=== PATIENT | female | born 1985 | race Caucasian/White ===

== ENCOUNTER 2017-04-08 05:13 | Emergency (ER) | payer OTHER ==
[~2017-04-08] VITALS: Ht 160 cm; Wt 69.5 kg
[~2017-04-08 05:13] MED LIST: ADVIL,NUPRIN,M200 MG PO; AUGMENTIN875 MG PO; BENTYL10 MG PO; CIPRO500 MG PO; COLACE100 MG PO; DOCUSATE SODIU100 MG PO; ENDOCET 5-3251 EACH PO; EXTRA STRENGTH500 M1 PO; FLAGYL500 MG PO; IBUPROFEN200 M1 PO; IBUPROFEN600 MG PO; LORTAB 5-325 M1 EACH PO; MOTRIN600 MG PO; Motrin PO; NAPROSYN500 MG PO; NORCO 5/3251 TABLET PO; OCELLA TABLET1 EACH PO; OXYCODONE HCL5 MG PO; PAXIL30 MG PO; PERCOCET 5/31 TABLET PO; Percocet 5/325,Endoc PO; TIROSINT13 MCG PO; TYLENOL EXTRA500 MG PO; ULTRAM50 MG PO; VANCOCIN HCL125 MG PO; YAZ 28 TABLET1 EACH PO; ZOFRAN ODT4 MG PO; ZOFRAN4 MG PO; [UNRECOGNIZED DRUG - REMARK] PO
[2017-04-08 05:51] LABS: MCH 29.7 PG (29.0-34.0); MCHC 33.3 G/DL (30.0-36.0); MEAN PLAT.VOLUME 9.4 uM^3 (9.5-12.4); PLATELET COUNT 281 K/uL (156-360); RBC DIS.WIDTH-SD 49.1 % (39-53); RED BLOOD COUNT 4.72 M/uL (3.80-5.20); WHITE BLOOD COUNT 10.6 K/uL (4.1-10.2)
[2017-04-08 06:00] LABS: PROTHROMBIN TIME 9.9 (9.2-11.2); PTT 32.1 (25-32)
[2017-04-08 06:05] LABS: CHLORIDE 108 mEq/L (99-109); SODIUM 140 mEq/L (136-147)
[2017-04-08 06:07] LABS: GLUCOSE 96 mg/dL (70-99)
[2017-04-08 06:08] LABS: ANION GAP 13 MEQ/L (2-14)
[2017-04-08 06:09] LABS: TOTAL BILIRUBIN 0.3 mg/dL (0.0-1.0)
[2017-04-08 06:10] LABS: ALKALINE PHOSPHATASE 73 IU/L (3-129)
[2017-04-08 06:11] LABS: GFR ESTIMATE (CALCULATED) > 59 mL/min/
[2017-04-08 06:12] LABS: UREA NITROGEN (BUN) 14 mg/dL (9-23)
[2017-04-08 06:14] LABS: LIPASE 27 U/L (1.0-51.0)
[2017-04-08 06:21] LABS: QUANTITATIVE HCG < 4.0 MIU/ML
[2017-04-08 07:32] LABS: ADD MIUA? YES; BILIRUBIN NEGATIVE; BLOOD MODERATE; COLOR YELLOW ((YELLOW)); GLUCOSE (STRIP) NEGATIVE; KETONES NEGATIVE; LEUKOCYTES NEGATIVE; NITRITE NEGATIVE; PROTEIN (STRIP) NEGATIVE; SPECIFIC GRAVITY 1.025 (1.000-1.030); UROBILINOGEN 0.2 MG/DL (0.2-1.0)
[2017-04-08 08:04] LABS: BACTERIA RARE /HPF; CALCIUM OXALATE CRYSTALS 3+ /HPF; EPITHELIAL CELLS RARE /HPF; MUCUS TRACE /LPF; RED BLOOD CELLS 0-5 /HPF (0-5); UCUL ADDED? NO; WHITE BLOOD CELLS 0-5 /HPF (0-5)
[2017-04-08] MEDS ORDERED: TRAMADOL HCL50 MG PO (09:52)
[2017-04-08 10:24] VITALS: BP 126/92
== END 2017-04-08 10:25 | disposition home or self-care (01) ==
LOC: EME 05:13
PROVIDERS: Emergency Medicine
DX: N92.0 Excessive and frequent menstruation with regular cycle (principal); N94.6 Dysmenorrhea, unspecified; F17.200 Nicotine dependence, unspecified, uncomplicated
CPT/HCPCS: 76856; 80053; 81003; 83690; 84702; 85027; 85610; 85730; 86900; 86901; 93005; 99281; 99285; J2270; J2405

== ENCOUNTER 2017-07-18 22:00 | Emergency (ER) | payer OTHER ==
[~2017-07-18] VITALS: Ht 160 cm; Wt 70.6 kg
[~2017-07-18 22:00] MED LIST changes: +TRAMADOL HCL50 MG PO
[2017-07-18 22:55] LABS: HEMATOCRIT 44.3 % (36.0-46.0); MCH 31.3 PG (29.0-34.0); MCHC 33.4 G/DL (30.0-36.0); MCV 93.7 FL (83-99); MEAN PLAT.VOLUME 9.3 uM^3 (9.5-12.4); PLATELET COUNT 265 K/uL (156-360); RBC DIS.WIDTH-CV 14.1 % (11.8-14.6); RBC DIS.WIDTH-SD 48.9 % (39-53); RED BLOOD COUNT 4.73 M/uL (3.80-5.20); WHITE BLOOD COUNT 11.2 K/uL (4.1-10.2)
[2017-07-18 23:09] LABS: CHLORIDE 111 mEq/L (99-109); POTASSIUM 3.1 mEq/L (3.7-5.4); SODIUM 144 mEq/L (136-147)
[2017-07-18 23:11] LABS: GLUCOSE 104 mg/dL (70-99)
[2017-07-18 23:12] LABS: ANION GAP 13 MEQ/L (2-14)
[2017-07-18 23:14] LABS: SERUM ETHYL ALCOHOL 225 mg/dL
[2017-07-18 23:15] LABS: GFR ESTIMATE (CALCULATED) > 59 mL/min/; UREA NITROGEN (BUN) 7 mg/dL (9-23)
[2017-07-18 23:24] LABS: QUANTITATIVE HCG 4020.9 MIU/ML
[2017-07-19 01:44] LABS: ADD MIUA? NO; BILIRUBIN NEGATIVE; BLOOD NEGATIVE; COLOR YELLOW ((YELLOW)); GLUCOSE (STRIP) NEGATIVE; KETONES NEGATIVE; LEUKOCYTES NEGATIVE; NITRITE NEGATIVE; PROTEIN (STRIP) NEGATIVE; SPECIFIC GRAVITY 1.026 (1.000-1.030); UCUL ADDED? NO
[2017-07-19 01:50] LABS: AMPHETAMINE NEGATIVE (500 ng/mL); BENZODIAZEPINES PRESUMPTIVE POSITIVE (150 ng/mL); COCAINE NEGATIVE (150 ng/mL); METHAMPHETAMINE NEGATIVE (500 ng/mL); OPIATES (MORPHINE) NEGATIVE (100 ng/mL); PHENCYCLIDINE NEGATIVE (25 ng/mL); THC CANNABINOIDS NEGATIVE (50 ng/mL)
[2017-07-19 01:51] LABS: ADD MEDTOX COMMENT Y; BARBITURATES NEGATIVE (200 ng/mL); INTERNAL CONTROLS VALID? YES; METHADONE NEGATIVE (200 ng/mL); OXYCODONE PRESUMPTIVE POSITIVE (100 ng/mL); PROPOXYPHENE NEGATIVE (300 ng/mL); TRICYCLIC ANTIDEPRESSANTS NEGATIVE (300 ng/mL)
[2017-07-19 02:30] VITALS: BP 128/73
[2017-07-19 04:53] LABS: BENZODIAZEPINES, URINE SCREEN POSITIVE (200 ng/mL)
== END 2017-07-19 03:04 | disposition home or self-care (01) ==
LOC: EME → EDBD 22:00 → EME 22:00
PROVIDERS: Emergency Medicine
DX: O99.341 Other mental disorders complicating pregnancy, first trimester (principal); F41.1 Generalized anxiety disorder; O99.311 Alcohol use complicating pregnancy, first trimester; F10.129 Alcohol abuse with intoxication, unspecified; O99.331 Smoking (tobacco) complicating pregnancy, first trimester; F17.200 Nicotine dependence, unspecified, uncomplicated; O99.281 Endocrine, nutritional and metabolic diseases complicating pregnancy, first trimester; E03.9 Hypothyroidism, unspecified; E87.6 Hypokalemia; Z3A.01 Less than 8 weeks gestation of pregnancy
CPT/HCPCS: 76801; 80048; 81003; 84702; 84999; 85027; 99281; 99285; G0480

== ENCOUNTER 2017-11-16 13:20 | Emergency (ER) | payer OTHER ==
[~2017-11-16] VITALS: Ht 160 cm; Wt 66.9 kg
[2017-11-16 14:26] LABS: HEMATOCRIT 37.2 % (36.0-46.0); HEMOGLOBIN 12.6 G/DL (11.9-15.5); MCH 32.3 PG (29.0-34.0); MCHC 33.9 G/DL (30.0-36.0); MCV 95.4 FL (83-99); PLATELET COUNT 238 K/uL (156-360); RBC DIS.WIDTH-CV 13.4 % (11.8-14.6); RBC DIS.WIDTH-SD 46.8 % (39-53); WHITE BLOOD COUNT 10.7 K/uL (4.1-10.2)
[2017-11-16 14:38] LABS: CHLORIDE 105 mEq/L (99-109); POTASSIUM 3.9 mEq/L (3.7-5.4); SODIUM 138 mEq/L (136-147)
[2017-11-16 14:40] LABS: GLUCOSE 86 mg/dL (70-99)
[2017-11-16 14:44] LABS: CREATININE 0.7 mg/dL (0.6-1.3); GFR ESTIMATE (CALCULATED) > 59 mL/min/
[2017-11-16 14:45] LABS: UREA NITROGEN (BUN) 10 mg/dL (9-23)
[2017-11-16 14:50] LABS: TROP-I INTERPRETATION NEGATIVE; TROPONIN-I < 0.01 ng/mL (0.0-0.30)
[2017-11-16 18:34] VITALS: BP 98/68
== END 2017-11-16 18:36 | disposition home or self-care (01) ==
LOC: EME 13:20
DX: O26.892 Other specified pregnancy related conditions, second trimester (principal); R07.9 Chest pain, unspecified; Z3A.23 23 weeks gestation of pregnancy; O99.282 Endocrine, nutritional and metabolic diseases complicating pregnancy, second trimester; E03.9 Hypothyroidism, unspecified; Z87.891 Personal history of nicotine dependence; Z88.1 Allergy status to other antibiotic agents
CPT/HCPCS: 71275; 80048; 84484; 85027; 93005; 99281; 99284; J7030

== ENCOUNTER 2018-01-31 15:24 | Outpatient (CLI) | payer OTHER ==
[~2018-01-31] VITALS: Ht 160 cm; Wt 70.0 kg
[2018-01-31 15:38] VITALS: BP 120/70
[2018-01-31] MEDS ORDERED: LEXAPRO20 MG PO (16:02)
[2018-01-31] MEDS ORDERED: PRENATAL TABLE1 EAC3 PO (16:03)
[2018-01-31 16:58] VITALS: BP 113/68
== END 2018-01-31 18:50 | disposition home or self-care (01) ==
LOC: LDRP-OP 15:24 → 2WEST 15:26 → LDRP-OP 04-08 09:43
DX: O36.5130 Maternal care for known or suspected placental insufficiency, third trimester, not applicable or unspecified (principal); Z3A.34 34 weeks gestation of pregnancy
CPT/HCPCS: 59025; G0378

== ENCOUNTER 2018-02-10 15:04 | Inpatient (IN) | payer OTHER ==
[2018-02-10] VITALS (7 sets, daily range): BP systolic 101–119; BP diastolic 58–74
[~2018-02-10] VITALS: Ht 160 cm; Wt 70.3 kg
[~2018-02-10 15:04] MED LIST changes: +LEXAPRO20 MG PO; +PRENATAL TABLE1 EAC3 PO
[2018-02-10] MEDS ORDERED: ZANTAC150 MG PO (16:34)
[2018-02-10 18:22] LABS: BASOPHIL (%) 0.4 % (0-1); EOSINOPHIL (%) 0.4 % (0-5); HEMATOCRIT 33.7 % (36.0-46.0); HEMOGLOBIN 11.6 G/DL (11.9-15.5); IMMATURE GRANULOCYTE (%) 0.2 % (0.0-0.7); LYMPHOCYTE (%) 18.2 % (15-42); LYMPHOCYTE COUNT 1.8 K/uL (1.0-2.8); MCH 32.9 PG (29.0-34.0); MCHC 34.4 G/DL (30.0-36.0); MCV 95.5 FL (83-99); MONOCYTE COUNT 0.9 K/uL (0-0.8); NEUTROPHIL (%) 71.8 % (45-76); NEUTROPHIL COUNT 7.1 K/uL (1.8-6.4); NRBC (%) 0.2 /100 WBC (0-0); PLATELET COUNT 198 K/uL (156-360); RBC DIS.WIDTH-CV 13.2 % (11.8-14.6); RED BLOOD COUNT 3.53 M/uL (3.80-5.20); WHITE BLOOD COUNT 9.9 K/uL (4.1-10.2)
[2018-02-10 18:47] LABS: APPEARANCE SL.HAZY ((CLEAR)); BILIRUBIN NEGATIVE; BLOOD NEGATIVE; COLOR YELLOW ((YELLOW)); GLUCOSE (STRIP) NEGATIVE; KETONES NEGATIVE; LEUKOCYTES TRACE; NITRITE NEGATIVE; PROTEIN (STRIP) NEGATIVE; SPECIFIC GRAVITY 1.014 (1.000-1.030); UROBILINOGEN 0.2 MG/DL (0.2-1.0)
[2018-02-10 18:57] LABS: BACTERIA RARE /HPF; EPITHELIAL CELLS RARE /HPF; MUCUS TRACE /LPF; RED BLOOD CELLS 0-5 /HPF (0-5); UCUL ADDED? NO; WHITE BLOOD CELLS 0-5 /HPF (0-5)
[2018-02-11] VITALS (23 sets, daily range): BP systolic 91–120; BP diastolic 55–76
[2018-02-11] MEDS ORDERED: IBUPROFEN800 MG PO (15:50)
[2018-02-11] MEDS ORDERED: ENDOCET 5-3251 EACH PO (15:50)
[2018-02-11 21:41] LABS: BENZODIAZEPINES, URINE SCREEN Negative (200 ng/mL)
[2018-02-12] LABS: AMPHETAMINE NEGATIVE (500 ng/mL); BARBITURATES NEGATIVE (200 ng/mL); BENZODIAZEPINES NEGATIVE (150 ng/mL); BUPRENORPHINE NEGATIVE (10 ng/mL); COCAINE NEGATIVE (150 ng/mL); METHADONE NEGATIVE (200 ng/mL); METHAMPHETAMINE NEGATIVE (500 ng/mL); OPIATES (MORPHINE) PRESUMPTIVE POSITIVE (100 ng/mL); OXYCODONE NEGATIVE (100 ng/mL); PHENCYCLIDINE NEGATIVE (25 ng/mL); PROPOXYPHENE NEGATIVE (300 ng/mL); THC CANNABINOIDS NEGATIVE (50 ng/mL); TRICYCLIC ANTIDEPRESSANTS NEGATIVE (300 ng/mL)
[2018-02-12 01:42] VITALS: BP 102/57
[2018-02-12 07:38] LABS: BASOPHIL (%) 0.2 % (0-1); EOSINOPHIL (%) 0.1 % (0-5); HEMATOCRIT 32.2 % (36.0-46.0); HEMOGLOBIN 10.9 G/DL (11.9-15.5); IMMATURE GRANULOCYTE (%) 0.6 % (0.0-0.7); LYMPHOCYTE (%) 10.3 % (15-42); LYMPHOCYTE COUNT 1.8 K/uL (1.0-2.8); MCH 31.9 PG (29.0-34.0); MCHC 33.9 G/DL (30.0-36.0); MCV 94.2 FL (83-99); MONOCYTE (%) 8.4 % (3-12); MONOCYTE COUNT 1.5 K/uL (0-0.8); NEUTROPHIL (%) 80.4 % (45-76); NEUTROPHIL COUNT 14.1 K/uL (1.8-6.4); PLATELET COUNT 215 K/uL (156-360); RBC DIS.WIDTH-CV 13.1 % (11.8-14.6); RBC DIS.WIDTH-SD 44.9 % (39-53); RED BLOOD COUNT 3.42 M/uL (3.80-5.20); WHITE BLOOD COUNT 17.5 K/uL (4.1-10.2)
[2018-02-12 07:47] VITALS: BP 102/60
[2018-02-12 14:00] VITALS: BP 130/78
[2018-02-12 19:45] VITALS: BP 111/65
[2018-02-12 23:16] VITALS: BP 115/74
[2018-02-13 03:00] VITALS: BP 131/75
[2018-02-13 22:52] VITALS: BP 113/66
[2018-02-14 07:27] VITALS: BP 125/76
[2018-02-15 00:29] VITALS: BP 124/77
[2018-02-15 09:30] VITALS: BP 122/76
== END 2018-02-15 16:00 | disposition home or self-care (01) | DRG 765 ==
LOC: LDRP-OP 15:04 → 2WEST 15:08 → LDRP-OP 04-08 21:33
PROVIDERS: Advanced Practice Midwife; Obstetrics & Gynecology; Obstetrics & Gynecology Gynecology
DX: O69.0XX0 Labor and delivery complicated by prolapse of cord, not applicable or unspecified (principal); O32.1XX0 Maternal care for breech presentation, not applicable or unspecified; O36.5930 Maternal care for other known or suspected poor fetal growth, third trimester, not applicable or unspecified; O41.03X0 Oligohydramnios, third trimester, not applicable or unspecified; O99.02 Anemia complicating childbirth; D50.9 Iron deficiency anemia, unspecified; O99.344 Other mental disorders complicating childbirth; F32.9 Major depressive disorder, single episode, unspecified; F41.9 Anxiety disorder, unspecified; O99.334 Smoking (tobacco) complicating childbirth; F17.200 Nicotine dependence, unspecified, uncomplicated; Z3A.36 36 weeks gestation of pregnancy; Z37.0 Single live birth
CPT/HCPCS: 80306 90; 81003; 84999; 85025; 86850; 86900; 86901; 88307; C1755; G0378; J0595; J0690; J0702; J1170; J1885; J2274; J2405; J3010; J7120

== ENCOUNTER 2018-07-05 19:02 | Emergency (ER) | payer OTHER ==
[~2018-07-05] VITALS: Ht 162.6 cm; Wt 64.7 kg
[~2018-07-05 19:02] MED LIST changes: +IBUPROFEN800 MG PO; +ZANTAC150 MG PO
[2018-07-05 19:58] LABS: APPEARANCE CLEAR ((CLEAR)); BILIRUBIN NEGATIVE; BLOOD SMALL; COLOR YELLOW ((YELLOW)); GLUCOSE (STRIP) NEGATIVE; KETONES NEGATIVE; LEUKOCYTES NEGATIVE; NITRITE NEGATIVE; PROTEIN (STRIP) 30; SPECIFIC GRAVITY 1.024 (1.000-1.030); UROBILINOGEN 0.2 MG/DL (0.2-1.0)
[2018-07-05 19:58] LABS: HEMATOCRIT 41.2 % (36.0-46.0); MCH 31.3 PG (29.0-34.0); MCV 92.2 FL (83-99); PLATELET COUNT 310 K/uL (156-360); RBC DIS.WIDTH-CV 12.9 % (11.8-14.6); RBC DIS.WIDTH-SD 43.7 % (39-53); RED BLOOD COUNT 4.47 M/uL (3.80-5.20); WHITE BLOOD COUNT 7.9 K/uL (4.1-10.2)
[2018-07-05 20:03] LABS: BACTERIA NONE SEEN /HPF; EPITHELIAL CELLS RARE /HPF; MUCUS TRACE /LPF; RED BLOOD CELLS 0-5 /HPF (0-5); UCUL ADDED? NO; WHITE BLOOD CELLS 0-5 /HPF (0-5)
[2018-07-05 20:39] LABS: CHLORIDE 109 mEq/L (99-109); POTASSIUM 3.6 mEq/L (3.7-5.4); SODIUM 143 mEq/L (136-147)
[2018-07-05 20:41] LABS: GLUCOSE 80 mg/dL (70-99)
[2018-07-05 20:45] LABS: CREATININE 0.9 mg/dL (0.6-1.3); GFR ESTIMATE (CALCULATED) > 59 mL/min/
[2018-07-05 20:46] LABS: UREA NITROGEN (BUN) 12 mg/dL (9-23)
[2018-07-05] MEDS ORDERED: ULTRAM50 MG PO (21:32)
[2018-07-05 21:42] VITALS: BP 129/86
== END 2018-07-05 21:43 | disposition home or self-care (01) ==
LOC: EME 19:02
PROVIDERS: Physician Assistant
DX: N93.9 Abnormal uterine and vaginal bleeding, unspecified (principal); E03.9 Hypothyroidism, unspecified; F17.200 Nicotine dependence, unspecified, uncomplicated
CPT/HCPCS: 76856; 80048; 81003; 84702; 85027; 99281; 99283